=== PATIENT | female | born 1945 | race Caucasian/White ===

== ENCOUNTER → 2018-10-28 | Outpatient (CLI) | payer MEDICARE, OTHER ==
--- NOTE | 2018-10-28 20:04 | PCVCIMAG ---
EXAM: VENOUS DUPLEX RIGHT LEG INDICATION: Leg pain and swelling. FINDINGS: Right leg: No thrombus in the common femoral, main femoral, or popliteal veins. These veins are compressible with phasic flow. Calf veins are unremarkable where seen. IMPRESSION: No evidence of deep venous thrombosis in the right lower extremity as detailed above. LOC:[id number]
== END | disposition home or self-care (01) ==
LOC: PCVCIMAG 16:11
PROVIDERS: ATTEND Podiatrist
DX: I82.401 Acute embolism and thrombosis of unspecified deep veins of right lower extremity (principal); M79.89 Other specified soft tissue disorders
CPT/HCPCS: 93971